=== PATIENT | male | born 1980 | race Caucasian/White ===

== ENCOUNTER 2020-06-15 09:23 | Emergency (ER) | payer BC, SELFPAY ==
[2020-06-15 09:38] VITALS: BP 145/97; PULSE 88; RESP 16; TEMP 36.7; O2SAT 98
--- NOTE | 2020-06-15 09:49 | ED.GENADULT ---
HPI - General Adult General Chief complaint: Abdominal Pain Stated complaint: ABD PAIN Source: patient Mode of arrival: ambulatory Limitations: no limitations History of Present Illness HPI narrative: Sal is a 40M with a PMH of WILLIS that presented to the ER with abdominal pain. He had significant diffuse abdominal pain last night that moved to the Q this morning. The pain has let up and improved with ibuprofen. No anorexia, vomiting, diarrhea, (has had 2 BM), or fevers. He has felt warm and had chills the past two days but he had the COVID vaccine the two days before this. The chills/fevers are not present at this time. Related Data Home Medications Medication Instructions Recorded Confirmed No Home Medications 06/15/20 06/15/20 Allergies Allergy/AdvReac Type Severity Reaction Status Date / Time cephalexin [From Keflex] Allergy Unknown unknown Verified 04/20/19 13:49 Review of Systems Constitutional: Constitutional: Reports as per HPI Eyes: Eyes: Reports no additional eye complaints ENT: Reports system reviewed and no additional complaints, except as documented Cardiovascular: Cardiovascular: Reports no additional cardiovascular complaints Respiratory: Respiratory: Reports no additional respiratory complaints Gastrointestinal: Gastrointestinal: Reports as per HPI Genitourinary: Genitourinary: Reports no additional male genitourinary complaints Musculoskeletal: Musculoskeletal: Reports no additional musculoskeletal complaints Integumentary/Breasts: Skin/Breast: Reports system reviewed and no additional complaints, except as docu Neurologic: Reports system reviewed and no additional complaints, except as documented Psychiatric: Psychiatric: Reports no additional psychiatric complaints Endocrine: Endocrine: Reports no additional endocrine complaints Hematologic/Lymphatic: Hematologic/Lymphatic: Reports no additional hematologic/lymphatic complaints Allergic/Immunologic: Allergic/Immunologic: Reports no additional allergic/immunologic complaints [facility] Past Medical History Medical History (Updated 06/15/20 @ 10:45 by Roberto Huynh DO) No active medical problems Surgical History Surgical History No history of previous surgery Family History Family History Father Multiple myeloma Mother History of artificial heart valve Social History Social History Smoking status: Never smoker Additional living arrangements comments: Additional occupation/education comments: Dentist Exam Const: General: no acute distress and alert Orientation/consciousness: patient oriented x3 Limitations: No altered mental status HENMT: Head: normal to inspection Eyes: Pupils: Equal, round and reactive pupils present Neck: Neck: normal visual inspection Chest: Chest palpation & inspection: normal inspection of the chest Resp: Effort & Inspection: normal respiratory effort Auscultation: clear to auscultation bilaterally Cardio: Rate: regular rate Rhythm: regular rhythm GI: Inspection: non-distended GI Palp: Yes Soft to palpation, No Guarding due to palpation present (GI), No Rigid due to palpation, No Palpable mass present and No Rebound tenderness present Auscultation: normal bowel sounds Other: mildly TTP in the RLQ : General: Yes no CVA tenderness Back/Spine/Pelvis: Back: no CVA tenderness Skin: General skin exam: normal color Rashes: no rashes Neuro: General: patient oriented x3 and moves all extremities Extrem: General: normal to inspection Psych: Mental Status: mental status grossly normal Course Course Emergency Course: Sal was evaluated. Declined pain meds. Ordered labs as below. Labs largely unremarkable. Pain likely due to cramping or adverse rxn to vaccine. Vital Signs Vital signs:
[2020-06-15 10:18] LABS: Basophils Absolute Auto 0.02 K/mm3 (0.00-0.10); Basophils Percent Auto 0.3 % (0.0-1.0); Eosinophils Percent Auto 1.7 % (1.0-6.0); Hematocrit 44.6 % (40.0-54.0); Hemoglobin 14.7 g/dL (14.0-18.0); Immature Granulocyte Absolute 0.01 K/mm3 (0.00-0.00); Immature Granulocyte Percent A 0.2 % (0.0-0.0); Lymphocytes Percent Auto 18.8 % (18.0-42.0); Mean Corpuscular Hemoglobin 31.1 pg (27.0-31.0); Mean Corpuscular Volume 94.3 fL (78.0-102.0); Mean Platelet Volume 9.3 fl (8.7-11.0); Monocytes Absolute Auto 0.38 K/mm3 (0.10-0.90); Monocytes Percent Auto 6.5 % (2.0-11.0); Neutrophils Absolute Auto 4.2 K/mm3 (1.7-7.2); Neutrophils Percent Auto 72.5 % (50.0-70.0); Platelet Count Result 233 K/mm3 (150-420); Red Blood Count 4.73 M/mm3 (4.70-6.10); Red Cell Distribution Width 11.5 % (11.6-14.4); White Blood Count 5.9 K/mm3 (4.8-10.8)
[2020-06-15 10:35] LABS: Alanine Aminotransferase 23 U/L (16-63); Alkaline Phosphatase 54 U/L (46-116); Anion Gap 6 mmol/L (8-16); Aspartate Amino Transferase < 10 U/L (15-37); Bilirubin,Total 0.6 mg/dL (0.00-1.00); Blood Urea Nitrogen 18 mg/dL (7-18); Calcium 8.9 mg/dL (8.5-10.1); Carbon Dioxide 29 mmol/L (21-32); Chloride 105 mmol/L (98-108); Estimated CRCL calculation 100 ml/min; Estimated Glomerular Filt Rate > 60; Glucose 101 mg/dL (70-99); Osmolality Calculated 291 mOsm/kg (285-295); Potassium 4.1 mmol/L (3.5-5.1); Sodium 140 mmol/L (136-145); Total Protein 7.3 g/dL (6.4-8.2)
[2020-06-15 10:37] LABS: CRP 0.9 mg/dL (0.0-0.9); Lipase 112 U/L (73-393)
[2020-06-15 10:48] LABS: Add Urine Microscopic? NO; Appearance Urine Clear (Clear); Bilirubin Urine Negative (Negative); Blood Urine Negative (Negative); Color Urine Yellow (Yellow); Glucose Urine UA Negative (Negative); Ketones Urine Negative (Negative); Leukocyte Esterase Ur Negative (Negative); Nitrate Urine Negative (Negative); Protein Urine Negative (Negative); Specific Grav Ur >= 1.030 (1.010-1.020); Urobilinogen Urine 0.2 mg/dL (0.2-1.0); pH Urine 6.5 (5.0-8.0)
[2020-06-15 10:52] VITALS: BP 128/98; PULSE 74; RESP 16; O2SAT 98
== END 2020-06-15 11:00 | disposition home or self-care (01) ==
PROVIDERS: Emergency Provider Family Medicine
DX: R10.9 Unspecified abdominal pain (principal)
CPT/HCPCS: 36415; 80053; 81003; 83690; 85025; 85610; 86140; 99282; 99283

== ENCOUNTER 2021-08-28 14:16 | Outpatient (CLI) | payer BC, SELFPAY ==
--- NOTE | ~2021-08-28 | XR_ITS ---
EXAM: XR foot RT min 3V HISTORY: Pain in right ankle joint that shoots thru foot to toes COMPARISON: None available FINDINGS: Normal mineralization. No fracture or dislocation. No lytic or blastic lesion. Joint space s maintained. No erosion or periosteal change. Soft tissues within normal limits. IMPRESSION: Normal right foot radiograph findings. Reviewed, dictated and finalized at location K.
[2021-08-28 14:33] LABS: Hematocrit 46.6 % (40.0-54.0); Hemoglobin 15.1 g/dL (14.0-18.0); Mean Corpuscular HGB Conc 32.4 g/dL (32.0-36.0); Mean Corpuscular Hemoglobin 30.9 pg (27.0-31.0); Mean Corpuscular Volume 95.3 fL (78.0-102.0); Mean Platelet Volume 9.7 fl (8.7-11.0); Platelet Count Result 233 K/mm3 (150-420); Red Blood Count 4.89 M/mm3 (4.70-6.10); Red Cell Distribution Width 11.6 % (11.6-14.4); White Blood Count 5.6 K/mm3 (4.8-10.8)
[2021-08-28 15:05] LABS: Alanine Aminotransferase 23 U/L (16-63); Albumin Level 4.5 g/dL (3.4-5.0); Alkaline Phosphatase 62 U/L (46-116); Anion Gap 9 mmol/L (8-16); Aspartate Amino Transferase 12 U/L (15-37); Bilirubin,Total 1.1 mg/dL (0.00-1.00); Blood Urea Nitrogen 19 mg/dL (7-18); Calcium 9.2 mg/dL (8.5-10.1); Carbon Dioxide 30 mmol/L (21-32); Chloride 101 mmol/L (98-108); Cholesterol 154 mg/dL (0-200); Estimated Glomerular Filt Rate > 60; Glucose 81 mg/dL (70-99); HDL Direct 41 mg/dL (40-60); LDL Cholesterol Calculated 93 mg/dL (<130); Osmolality Calculated 291 mOsm/kg (285-295); Potassium 3.8 mmol/L (3.5-5.1); Sodium 140 mmol/L (136-145); Total Protein 7.4 g/dL (6.4-8.2); Triglycerides 100 mg/dL (0-150)
== END 2021-08-28 14:17 | disposition home or self-care (01) ==
LOC: CHSIMG 14:18
PROVIDERS: PCP Family Medicine; Visit Provider Family Medicine
DX: Z00.00 Encounter for general adult medical examination without abnormal findings (principal); M79.671 Pain in right foot
CPT/HCPCS: 36415; 73630; 80053; 80061; 85027

== ENCOUNTER 2022-08-09 13:58 | Outpatient (CLI) | payer BC, SELFPAY ==
[2022-08-09 14:11] LABS: Hematocrit 44.7 % (40.0-54.0); Hemoglobin 14.8 g/dL (14.0-18.0); Mean Corpuscular HGB Conc 33.1 g/dL (32.0-36.0); Mean Corpuscular Hemoglobin 31.2 pg (27.0-31.0); Mean Corpuscular Volume 94.3 fL (78.0-102.0); Mean Platelet Volume 9.5 fl (8.7-11.0); Platelet Count Result 259 K/mm3 (150-420); Red Blood Count 4.74 M/mm3 (4.70-6.10); Red Cell Distribution Width 11.7 % (11.6-14.4); White Blood Count 6.1 K/mm3 (4.8-10.8)
[2022-08-09 14:41] LABS: Alanine Aminotransferase 21 U/L (16-63); Albumin Level 4.2 g/dL (3.4-5.0); Alkaline Phosphatase 52 U/L (46-116); Anion Gap 8 mmol/L (8-16); Aspartate Amino Transferase 12 U/L (15-37); Bilirubin,Total 0.8 mg/dL (0.00-1.00); Blood Urea Nitrogen 22 mg/dL (7-18); Calcium 9.2 mg/dL (8.5-10.1); Carbon Dioxide 31 mmol/L (21-32); Chloride 106 mmol/L (98-108); Cholesterol 144 mg/dL (0-200); Estimated Glomerular Filt Rate > 60; Glucose 127 mg/dL (70-99); HDL Direct 40 mg/dL (40-60); LDL Cholesterol Calculated 89 mg/dL (<130); Osmolality Calculated 305 mOsm/kg (285-295); Potassium 3.9 mmol/L (3.5-5.1); Sodium 145 mmol/L (136-145); Total Protein 7.2 g/dL (6.4-8.2); Triglycerides 77 mg/dL (0-150)
== END 2022-08-09 13:59 | disposition home or self-care (01) ==
LOC: CHSLAB 14:00
PROVIDERS: PCP Family Medicine; Visit Provider Family Medicine
DX: Z00.00 Encounter for general adult medical examination without abnormal findings (principal)
CPT/HCPCS: 36415; 80053; 80061; 85027

== ENCOUNTER 2022-08-31 07:46 | Outpatient (CLI) | payer BC, SELFPAY ==
--- NOTE | ~2022-08-31 | CT_ITS ---
EXAMINATION: CT sinus wo con DATE: 08/31/2022 08:06 INDICATION: Chronic sinus congestion. TECHNIQUE: Computed tomography (CT) of the paranasal sinuses was performed without intravenous contra st. Iterative reconstruction technique was employed. The dose-length product was 319.20 mGy-cm. COMPARISON: None FINDINGS: There is mild mucosal thickening in the frontal and ethmoid sinuses. The sphenoid sinuses a re clear. There is mild mucosal thickening in the maxillary sinuses near the ostia. The ostiomeatal u nits are patent. There is rightward deviation of the nasal septum. IMPRESSION: 1. Mild mucosal thickening in the paranasal sinuses. 2. Rightward deviation of the nasal septum. Reviewed, dictated and finalized at location A.
== END 2022-08-31 07:47 | disposition home or self-care (01) ==
LOC: CHSIMG 07:47
PROVIDERS: PCP Family Medicine; Visit Provider Family Medicine
DX: J32.9 Chronic sinusitis, unspecified (principal); J34.2 Deviated nasal septum
CPT/HCPCS: 70486

== ENCOUNTER 2023-01-25 10:14 | Outpatient (CLI) | payer BC, SELFPAY ==
--- NOTE | 2023-01-25 10:37 | ECG_ITS ---
Measurements Intervals [place] Rate: 61 P: 54 MA: 145 QRS: 28 QRSD: 105 T: 21 QT: 369 QTc: 373 Interpretive Statements SINUS RHYTHM NORMAL ECG NO PREVIOUS ECG AVAILABLE FOR COMPARISON Electronically Signed On 01-25-2023 11:02:28 CDT by Vladislav Chávez D.O.
[2023-01-25 11:15] LABS: NT Pro B Type Natriuretic Pept 17 pg/mL (0-125)
[2023-01-30 12:31] LABS: Anion Gap 6 mmol/L (8-16); Blood Urea Nitrogen 21 mg/dL (7-18); Calcium 9.5 mg/dL (8.5-10.1); Carbon Dioxide 32 mmol/L (21-32); Chloride 102 mmol/L (98-108); Estimated Glomerular Filt Rate > 60; Glucose 93 mg/dL (70-99); Osmolality Calculated 293 mOsm/kg (285-295); Potassium 4.8 mmol/L (3.5-5.1); Sodium 140 mmol/L (136-145)
== END 2023-01-25 10:15 | disposition home or self-care (01) ==
LOC: CHSLAB 10:16
PROVIDERS: PCP Family Medicine; Visit Provider Family Medicine
DX: Z01.818 Encounter for other preprocedural examination (principal)
CPT/HCPCS: 36415; 80048; 83880; 93005

== ENCOUNTER 2024-02-07 08:23 | Outpatient (CLI) | payer BC, SELFPAY ==
[2024-02-07 08:37] LABS: Basophils Absolute Auto 0.04 K/mm3 (0.00-0.10); Basophils Percent Auto 0.9 % (0.0-1.0); Eosinophils Absolute Auto 0.06 K/mm3 (0.02-0.50); Eosinophils Percent Auto 1.4 % (1.0-6.0); Hematocrit 45.7 % (40.0-54.0); Hemoglobin 15.3 g/dL (14.0-18.0); Immature Granulocyte Absolute 0.01 K/mm3 (0.00-0.00); Immature Granulocyte Percent A 0.2 % (0.0-0.0); Lymphocytes Absolute Auto 1.47 K/mm3 (1.10-4.50); Lymphocytes Percent Auto 34.3 % (18.0-42.0); Mean Corpuscular HGB Conc 33.5 g/dL (32-36); Mean Corpuscular Hemoglobin 30.7 pg (27.0-31.0); Mean Corpuscular Volume 91.6 fL (78.0-102.0); Mean Platelet Volume 9.6 fl (8.7-11.0); Monocytes Absolute Auto 0.42 K/mm3 (0.10-0.90); Monocytes Percent Auto 9.8 % (2.0-11.0); Neutrophils Absolute Auto 2.29 K/mm3 (1.70-7.20); Neutrophils Percent Auto 53.4 % (50.0-70.0); Platelet Count Result 235 K/mm3 (150-420); Red Blood Count 4.99 M/mm3 (4.70-6.10); Red Cell Distribution Width 11.7 % (11.6-14.4); White Blood Count 4.3 K/mm3 (4.8-10.8)
[2024-02-07 09:23] LABS: Alanine Aminotransferase 26 U/L (16-63); Albumin Level 4.1 g/dL (3.4-5.0); Alkaline Phosphatase 59 U/L (46-116); Anion Gap 6 mmol/L (4-12); Blood Urea Nitrogen 21 mg/dL (7-18); Calcium 8.8 mg/dL (8.5-10.1); Carbon Dioxide 31 mmol/L (21-32); Chloride 101 mmol/L (98-108); Cholesterol 161 mg/dL (0-200); Estimated Glomerular Filt Rate > 60; Glucose 101 mg/dL (70-99); HDL Direct 41 mg/dL (40-60); LDL Cholesterol Calculated 110 mg/dL (<130); Osmolality Calculated 289 mOsm/kg (285-295); Potassium 4.2 mmol/L (3.5-5.1); Sodium 138 mmol/L (136-145); Total Protein 6.9 g/dL (6.4-8.2); Triglycerides 48 mg/dL (0-150)
[2024-02-07 09:32] LABS: Aspartate Amino Transferase 13 U/L (15-37)
[2024-02-07 09:33] LABS: Thyroid Stimulating Hormone Reflex 0.72 u/IU/mL (0.36-3.74)
[2024-02-11 22:43] LABS: Almond (F20) IgE <0.10 kU/L; Cashew Nut (F202) IgE <0.10 kU/L; Cashew Nut (F202) IgE Class 0; Codfish (F3) IgE <0.10 kU/L; Codfish (F3) IgE Class 0; Cow's Milk (F2) IgE <0.10 kU/L; Cow's Milk (F2) IgE Class 0; Egg White (F1) IgE <0.10 kU/L; Egg White (F1) IgE Class 0; Hazelnut (F17) IgE <0.10 kU/L; Hazelnut (F17) IgE Class 0; Peanut (F13) IgE <0.10 kU/L; Peanut (F13) IgE Class 0; Salmon (F41) IgE <0.10 kU/L; Salmon (F41) IgE Class 0; Scallop (F338) IgE <0.10 kU/L; Scallop (F338) IgE Class 0; Sesame Seed <0.10 kU/L; Shrimp (F24) IgE <0.10 kU/L; Soybean (F14) IgE <0.10 kU/L; Soybean (F14) IgE Class 0; Tuna (F40) <0.10 kU/L; Tuna (F40) Class 0; Walnut (F256) IgE <0.10 kU/L; Walnut (F256) IgE Class 0; Wheat (F4) IgE <0.10 kU/L; Wheat (F4) IgE Class 0
== END 2024-02-07 08:24 | disposition home or self-care (01) ==
PROVIDERS: PCP Family Medicine; Visit Provider Family Medicine
DX: Z00.00 Encounter for general adult medical examination without abnormal findings (principal); E03.9 Hypothyroidism, unspecified; K90.49 Malabsorption due to intolerance, not elsewhere classified
CPT/HCPCS: 36415; 80053; 80061; 84443; 85025; 86003

== ENCOUNTER 2025-01-21 14:38 | Outpatient (CLI) | payer BC, SELFPAY ==
--- OUTSIDE RECORDS SUMMARY | 2025-01-21 14:46 | XMS_ITS | Clinical Summary ---
Author Organization [facility] Address [address] [place] [address] Care Team Providers Care Traffic Attendant Name Role Phone Juan Francisco Macias MD Unavailable Unavailab Bradford Mendez MD Primary Care Provider [phone] Guille Ireland MD Unavailable Yaakov Muñoz MD Unavailable [phone] Allergies Active Allergy Reactions Criticality Noted Date Comments Cephalexin Rash Low 02/06/2017 Medications triamcinolone acetonide (NASACORT ALLERGY 24HR) 55 MCG/ACT nasal inhaler 1 spray by Each Nostril route as needed. Active COMPRESSION STOCKINGS 20-30 MMHg Compression Stocking Knee High open or closed toe Dx I83.56777 1 Container 6 8 Active CPAP DME DEVICEIndicatio ns:Obstructive sleep apnea (adult) (pediatric) 1 Device by Does not apply route daily. Patient will need CPAP 8cm, tubing, mask, filter etc. 1 Units 9 Active Active Problems Problem Noted Date Diagnosed Date History of snoring 02/10/2018 Lymphedema 08/08/2017 Edema, lower extremity 05/06/2017 Edema 05/06/2017 Family History Relation Status Comments Father Alive Maternal Grandfather Alive Maternal Grandmother Alive Mother Alive Paternal Grandfather Alive Paternal Grandmother Alive Social History Tobacco Use Types Packs/Day Years Used Date Smoking Tobacco: Never Smokeless Tobacco: Never Alcohol Use Standard Drinks/Week Comments No 0 (1 standard drink = 0.6 oz pur e alcohol) Sex and Gender Information Value Date Recorded Sex Assigned at Not on file Legal Sex Male 9:32 AM CDT Gender Identity Not on file Sexual Orientation Not on file Occupation Industry Job Start Date Job End Date Not on file Not on file Not on file Not on file Last Filed Vital Signs Vital Sign Reading Time Taken Comments Blood Pressure 118/80 08/05/2019 2:59 PM CDT Pulse 68 08/05/2019 2:56 PM CDT Temperature 36.7 C (98.1 F) 08/05/2019 2:56 PM CDT Respiratory Rate 16 08/05/2019 2:56 PM CDT Oxygen Saturation 98% 09/29/2018 2:12 PM CDT Inhaled Oxygen Concentration - - Weight 87.9 kg (193 lb 12.8 oz) 08/05/2019 2:56 PM CDT Height 177.8 cm (5' 10) 08/05/2019 2:56 PM CDT Body Mass Index 27.81 08/05/2019 2:56 PM CDT Plan of Treatment Health Maintenance Due Date Last Done Comments Annual Physical 01/26/1984 Hepatitis C 1999 DTaP, Tdap and Td Vaccines ( 1 - Tdap) 01/26/2000 Hepatitis B Vaccines (1 of 3 - 19+ 3-dose series) 01/26/2000 HPV Vaccines (1 - 3-dose SCD M series) 01/26/2008 COVID-19 Vaccine (1 - 2023-2 5 season) 2025 Meningococcal B Vaccine Aged Out No l onger eligible based on patient's age to complete this topic Meningococcal Vaccine Aged Out No lea poornima eligible based on patient's age to complete this topic Pneumococcal Vaccine: Pediat rics (0 to 5 Years) and At-Risk Patients (6 to 49 Years) Aged Out No longer eligible b ased on patient's age to complete this topic RSV Immunizations Under 20 Months Aged Out No longer eligible based on patient's age to complete this topic Insurance [facility] Care Teams Traffic Attendant Relationship Specialty Start Date End Date Bradford Berg MD [address] [place] [address] PCP - General FAMILY PRACTICE 01/25/17 Juan Francisco Macias MD CARDIOVASCULAR DISEASE 01/25/17 Guille Ireland MD [address] [place] [address] Vascular/Collision Mechanic INTERNAL MEDICINE 05/06/17 Yaakov Muñoz MD [facility] [place] [id number] PULMONARY DISEASE 02/10/18
--- OUTSIDE RECORDS SUMMARY | 2025-01-21 14:46 | XMS_ITS | Encounter Summary ---
Author Organization [facility] Address [address] [place] [address] Care Team Providers Care Home Economist Consumer Service Name Role Phone Juan Francisco Macias MD Unavailable Unavailab le Bradford Berg MD Primary Care Provider [phone] Guille Ireland MD Unavailable Yaakov Muñoz MD Unavailable [phone] Encounter Details Date Type Department Care Team (Late st Contact Info) Description 02/05/2017 [facility] [address] [place] [address] Juan Francisco Macias MD Social History Tobacco Use Types Packs/Day Years Used Date Smoking Tobacco: Never Assessed Sex and Gender Information Value Date Recorded Sex Assigned at Not on file Legal Sex Male 9:32 AM CDT Gender Identity Not on file Sexual Orientation Not on file documented as of this encounter Plan of Treatment Not on file documented as of this encounter Visit Diagnoses Not on filedocumented in this encounter Care Teams Home Economist Consumer Service Relationship Specialty Start Date End Date Bradford Berg MD [address] [place] [address] PCP - General FAMILY PRACTICE 01/25/17 Juan Francisco Macias MD CARDIOVASCULAR DISEASE 01/25/17 Guille Ireland MD [address] [place] [address] Vascular/Spring Upholsterer INTERNAL MEDICINE 05/06/17 Yaakov Muñoz MD [address] [place] [id number] PULMONARY DISEASE 02/10/18 documented as of this encounter
--- OUTSIDE RECORDS SUMMARY | 2025-01-21 14:46 | XMS_ITS | Clinical Summary ---
Author Organization [facility] Care Team Providers Care Hadoop Infrastructure Architect Name Role Phone Roberto Huynh DO Primary Care Provider Faizan Evans MD Unavailable [phone] Allergies Active Allergy Reactions Criticality Noted Date Comments Cephalexin Rash Medium 02/06/2017 Medications triamcinolone (NASACORT) 55 mcg nasal inhaler Administer 1 spray into affected nostril(s) as needed Rotates back and forth with Flonase Active fluticasone propionate (FLONASE) 50 mcg/actuation nasal spray Administer 2 sprays into each nostril as needed for rhinitis Active lisinopril-hydr oCHLOROthiazide (ZESTORETIC) 10-12.5 mg per tabletIndicatio ns:hypertension Take 1 tablet by mouth daily Active Active Problems Problem Noted Date Diagnosed Date Chronic tonsillitis 11/07/2023 Assessment & Plan (11/07/2023 9:55 AM CDT): He has recurring sore throats but states that they are pretty tolerable. He does not really feel very sick when this occurs. These tend to occur whenever he gets a upper respiratory infection. I think at this point I would recommend continue conservative management. We did talk about tonsillectomies and adult patients. They are generally are no more risks than children but the recovery processes pretty difficult. He does not really want to pursue surgery either. He was told that he might be a strep carrier and might be exposing his son strep infections. I told that is possible but if he has not had significant sore throats I would still recommend conservative management. I think probably most of his are viral. He understands. He is fine with conservative management. Deviated nasal septum 10/11/2022 Hypertrophy of nasal turbinates 10/11/2022 Nasal obstruction 09/23/2022 Assessment & Plan (09/23/2022 6:59 PM CDT): In his mostly due to the deviated septum and enlarged inferior turbinates. I recommended surgery to correct those. I discussed the risk of a septoplasty with and without turbinectomy with the patient. There is a risk of continued nasal obstruction, bleeding, septal perforation, permanent anosmia. Also risk of inadequate correction which could result in continued nasal obstruction symptoms. I did indicate that it may really have no benefit towards his obstructive sleep apnea other than allowing his CPAP device to work more efficiently. He understands. He would like to go ahead and proceed with this. Chronic maxillary sinusitis 09/23/2022 Assessment & Plan (02/27/2023 7:44 PM CDT): The middle meatus his healed on both sides. I did remove some of the moist packing from the maxillary ostia area without difficulty. These are open. At this point he appears to have healed well enough that he does not need a follow-up. I did ask him to follow up however if he should have any problems. He understands. He has no questions. Assessment & Plan (02/12/2023 8:09 PM CDT): Things look pretty good thus far. He has a good nasal airway. No evidence of bleeding. I recommended that he keep his head elevated for the next couple of days and avoid blowing his nose for the next couple of days also. I want him to avoid any strenuous activities for about a week. I recommended that he wait 5-7 days before he start to use his CPAP. He can stop his antibiotic any time I indicated. I would like to have him follow up in about 2 weeks. Assessment & Plan (09/23/2022 6:59 PM CDT): He does have some maxillary sinus disease with obstruction. I suspect he probably is suffering from recurring maxillary sinusitis. I recommended endoscopic sinus surgery to open the maxillary sinuses. I discussed the risk of sinus surgery including the risk of recurrent or persistent disease that may require further revision surgery. There is a risk of orbital injury and EARTH MOVING MACHINE OPERATOR injury which could result in blindness or double vision or brain damage. These risks are quite low. Some risk of permanent anosmia. He indicates that he would like to go ahead and pursue this. He understands. He has no questions. Surgical History Surgery Date Site/Laterality Comments LASIK NASAL SEPTOPLASTY W/ TURBINOPLASTY 02/11/2023 SINUS SURGERY 02/11/2023 Bilateral Maxillary antrostomies Medical History Medical History Date Comments Allergic rhinitis GERD (gastroesophageal reflux disease) Hypertension Food intolerance patient states feels has gluten intolerance has never been tested Sleep apnea wears cpap night ly Sore throat Recurrent sore t hroat Family History Medical History Relation Name Comments Multiple myeloma Father Heart disease Mother Relation Name Status Comments Father Mother Social History Tobacco Use Types Packs/Day Years Used Date Smoking Tobacco: Never Smokeless Tobacco: Never AUDIT-C Answer Date Recorded Q1: How often do you have a drink containing alcohol? Never 02/11/2023 Q2: How many drinks containi ng alcohol do you have on a typical day when you are drinking? Patient does not drink Frequency of Binge Drinking Not on file 01/19 Personal Safety Answer Date Recorded Have you ever been in or are you currently in a harmful physical or emotional relationship or is someone making you feel afraid or unsafe? Denies 02/11/2023 Sex and Gender Information Value Date Recorded Sex Assigned at Not on file Legal Sex Male 11:08 AM CDT Gender Identity Not on file Sexual Orientation Not on file Obstetrics History Last Filed Vital Signs Vital Sign Reading Time Taken Comments Blood Pressure 141/93 02/11/2023 1:35 PM CDT Pulse 73 02/11/2023 1:35 PM CDT Temperature 36.2 C (97.2 F) 02/11/2023 11:45 AM CDT Respiratory Rate 18 11/07/2023 8:41 AM CDT Oxygen Saturation 97% 02/11/2023 1:35 PM CDT Inhaled Oxygen Concentration - - Weight 90.7 kg (200 lb) 11/07/2023 8:41 AM CDT Height 175.3 cm (5' 9) 11/07/2023 8:41 AM CDT Body Mass Index 29.53 11/07/2023 8:41 AM CDT Plan of Treatment Health Maintenance Due Date Last Done Comments Depression Screening 1981 Hepatitis C Screening 1981 Varicella Vaccines (1 of 2 - 13+ 2-dose series) 1994 DTaP/Tdap/Td Vaccine (6 - Tdap) 10/14/1996 10/13/1996, 12/22/1986, 02/17/1983, Additional history exists Hepatitis B Screening 1999 Regular Well Visit/Exam 18-64 1999 HPV Vaccines (1 - 3-dose SCDM series) 01/26/2008 Influenza Vaccine (#1) 2025 03/07/2024 Pneumococcal vaccine <65 Aged Out No longer eligible based on patient's age to complete this topic [place] [employer] [place] [employer] [place] For more information, please contact: [phone] * Full Code (Latest Code Status on File) Date Activated Date Inactivated Comments 02/11/2023 11:59 AM 02/11/2023 7:19 PM Care Teams Hadoop Infrastructure Architect Relationship Specialty Start Date End Date Roberto Huynh DO [address] [place] [address] PCP - General Family Medicine 08/31/22 Faizan Evans MD [address] [place] [address] Consulting Physician Otolaryngology 02/11/23
[2025-01-21 14:52] LABS: Hematocrit 46.7 % (40.0-54.0); Hemoglobin 15.3 g/dL (14.0-18.0); Immature Granulocyte Percent A 0.4 % (0.0-0.0); Lymphocytes Absolute Auto 1.59 K/mm3 (1.10-4.50); Mean Corpuscular HGB Conc 32.8 g/dL (32-36); Mean Corpuscular Hemoglobin 30.4 pg (27.0-31.0); Mean Corpuscular Volume 92.7 fL (78.0-102.0); Nucleated Red Blood Cells Absolute Auto 0.00 K/mm3 (0.00-0.00); Nucleated Red Blood Cells Perc 0.0 % (0-0.0); Platelet Count Result 231 K/mm3 (150-420); Red Blood Count 5.04 M/mm3 (4.70-6.10); White Blood Count 5.2 K/mm3 (4.8-10.8)
[2025-01-21 15:32] LABS: Alanine Aminotransferase 25 U/L (6-50); Albumin Level 4.8 g/dL (3.5-5.1); Alkaline Phosphatase 53 U/L (38-126); Anion Gap 10 mmol/L (4-12); Aspartate Amino Transferase 25 U/L (17-59); Bilirubin,Total 1.7 mg/dL (0.2-1.3); Blood Urea Nitrogen 19 mg/dL (9-20); Calcium 9.9 mg/dL (8.4-10.2); Carbon Dioxide 30 mmol/L (22-30); Chloride 100 mmol/L (98-107); Cholesterol 184 mg/dL (0-200); Estimated Glomerular Filt Rate > 60; Glucose 88 mg/dL (65-110); HDL Direct 43 mg/dL; Osmolality Calculated 291 mOsm/kg (285-295); Potassium 4.6 mmol/L (3.4-5.0); Sodium 140 mmol/L (137-145); Total Protein 7.4 g/dL (6.3-8.2); Triglycerides 127 mg/dL (<150)
[2025-01-21 16:04] LABS: Thyroid Stimulating Hormone Reflex 0.693 uIU/mL (0.465-4.68)
[2025-01-21 16:38] LABS: Vitamin B12 383.0 pg/mL (239-931)
== END 2025-01-21 14:39 | disposition home or self-care (01) ==
LOC: CHSLAB 14:40
PROVIDERS: PCP Family Medicine; Visit Provider Family Medicine
DX: E53.8 Deficiency of other specified B group vitamins (principal); I10 Essential (primary) hypertension; E03.9 Hypothyroidism, unspecified
CPT/HCPCS: 36415; 80053; 80061; 82607; 82746; 84443; 85025

== ENCOUNTER 2025-02-26 11:23 | Outpatient (CLI) | payer BC, SELFPAY ==
[2025-02-26 13:12] LABS: CRP < 0.5 mg/dL (<1.0)
[2025-02-27 15:09] LABS: Deamidated Gliadin Abs, IgA 3 units (0-19); Deamidated Gliadin Abs, IgG 2 units (0-19)
== END 2025-02-26 11:24 | disposition home or self-care (01) ==
LOC: CHSLAB 11:23
PROVIDERS: PCP Family Medicine; Visit Provider Nurse Practitioner
DX: E73.9 Lactose intolerance, unspecified (principal); K90.41 Non-celiac gluten sensitivity; K21.9 Gastro-esophageal reflux disease without esophagitis; R10.9 Unspecified abdominal pain; R19.5 Other fecal abnormalities; K59.4 Anal spasm; R15.1 Fecal smearing
CPT/HCPCS: 36415; 82784; 83520; 85652; 86140; 86231; 86258; 86364